=== PATIENT | female | born 1980 | race Caucasian/White ===

== ENCOUNTER 2017-11-15 15:22 | Emergency (ER) | payer SELFPAY ==
[~2017-11-15] VITALS: Ht 160 cm; Wt 79.1 kg
[~2017-11-15 15:22] MED LIST: CIP250T PO; METR500T4 PO
[2017-11-15] MEDS ORDERED: DOXY100C2 PO (15:52)
[2017-11-15 16:12] VITALS: BP 132/76
== END 2017-11-15 16:13 | disposition home or self-care (01) ==
LOC: ER 15:23
DX: L02.212 Cutaneous abscess of back [any part, except buttock and flank] (principal); L03.312 Cellulitis of back [any part except buttock and flank]; F12.10 Cannabis abuse, uncomplicated
CPT/HCPCS: 99283